=== PATIENT | female | born 1995 | race Caucasian/White ===

== ENCOUNTER 2017-05-23 15:37 | Outpatient (CLI) | payer OTHER ==
[~2017-05-23] VITALS: Ht 177.8 cm; Wt 108.2 kg
[2017-05-23 16:23] VITALS: BP 142/72
== END 2017-05-23 16:45 | disposition home or self-care (01) ==
LOC: LDOP 15:37
PROVIDERS: ATTEND Obstetrics & Gynecology
DX: O26.893 Other specified pregnancy related conditions, third trimester (principal); O48.0 Post-term pregnancy; R10.9 Unspecified abdominal pain; Z3A.41 41 weeks gestation of pregnancy
CPT/HCPCS: 59025; 99211; G0463

== ENCOUNTER 2018-09-10 00:58 | Inpatient (IN) | payer BC, OTHER ==
[~2018-09-10] VITALS: Ht 180.3 cm; Wt 119.0 kg
[2018-09-10] MEDS ORDERED: RANI-276 PO (01:12)
[2018-09-10] MEDS ORDERED: HALOPERIDOL 5 MG/ML ONE (01:26)
[2018-09-10 01:29] LABS: MEAN CORPUSCULAR HEMOGLOBIN 29.8 pg (27.0-34.8); MEAN CORPUSCULAR HGB CONC 33.7 g/dL (32.4-35.8); MEAN CORPUSCULAR VOLUME 88.6 fL (80-100); MEAN PLATELET VOLUME 9.3 fL (7.4-10.4); PLATELET COUNT 282 x10^3/uL (130-400); RED BLOOD COUNT 4.98 x10^6/uL (3.82-5.3); RED CELL DISTRIBUTION WIDTH 14.3 % (9.6-15.2)
[2018-09-10] MEDS ORDERED: CAPSAICIN CRM 0.025%, 60GM TP ONE (01:30)
[2018-09-10] MEDS ORDERED: SODIUM CHLORIDE 0.9% 1,000ML IVBOLUS ONE (01:30)
[2018-09-10] MEDS ORDERED: HALOPERIDOL 5 MG/ML IV ONE (01:30)
[2018-09-10 01:42] LABS: ALANINE AMINOTRANSFERASE 350 U/L (12-78); ALBUMIN 3.9 g/dL (3.4-5.0); ANION GAP 11 mmol/L (5-15); CALCIUM 8.8 mg/dL (8.5-10.1); CHLORIDE 112 mmol/L (98-107)
[2018-09-10 01:46] LABS: BASOPHILS # (AUTO) 0.04 x10^3/uL (0-0.1); BASOPHILS % (AUTO) 0 % (0-1); EOSINOPHILS # (AUTO) 0.58 x10^3/uL (0-0.4); EOSINOPHILS % (AUTO) 3 % (1-7); LYMPHOCYTES # (AUTO) 3.19 x10^3/uL (1-3.4); LYMPHOCYTES % (AUTO) 16 % (22-44); MONOCYTES # (AUTO) 1.15 x10^3/uL (0.2-0.8); MONOCYTES % (AUTO) 6 % (2-9); NEUTROPHILS # (AUTO) 15.53 x10^3/uL (1.8-6.8); NEUTROPHILS % (AUTO) 76 % (42-75)
[2018-09-10 01:47] LABS: ALKALINE PHOSPHATASE 193 U/L (45-117); BILIRUBIN,TOTAL 2.9 mg/dL (0.2-1.0); MD SCAN; TOTAL PROTEIN 7.6 g/dL (6.4-8.2)
[2018-09-10] MEDS ORDERED: MORPHINE SULFATE 4 MG/ML, 1ML ONE ×2 (02:40→03:54)
[2018-09-10] MEDS ORDERED: MORPHINE SULFATE 4 MG/ML, 1ML IV ONE (03:00)
[2018-09-10] MEDS ORDERED: LACTATED RINGERS 1,000 ML IVBOLUS ONE (04:30)
[2018-09-10] MEDS ORDERED: AMPICILLIN/SULBACTAM 3 GM IM ONE (04:30)
[2018-09-10] MEDS ORDERED: HYDROmorphone 1 MG/ML, 1ML IV ONE (04:30)
[2018-09-10 05:27] VITALS: BP 139/88
[2018-09-10] MEDS ORDERED: AMPICILLIN/SULBACTAM 3 GM in SODIUM CHLORIDE 0.9% 100 ML IV ONE (05:30)
[2018-09-10] MEDS ORDERED: hydrALAzine 20 MG/ML, 1ML IVPush PRN (05:30)
[2018-09-10] MEDS: LACTATED RINGERS 1,000 ML IV SCH ×6 (05:30→21:13)
[2018-09-10] MEDS ORDERED: PROMETHAZINE 25 MG/ML, 1ML IM PRN (05:30)
[2018-09-10 05:40] VITALS: BP 134/88
[2018-09-10] MEDS: HYDROmorphone 2 MG/ML, 1ML IVPush PRN ×5 (06:18→23:46)
[2018-09-10] MEDS: HEPARIN 5,000 UNITS/ML, 1ML SQ SCH ×3 (06:18→22:11)
[2018-09-10] MEDS ORDERED: MORPHINE SULFATE 4 MG/ML, 1ML IVPush ONE (07:00)
[2018-09-10 07:59] VITALS: BP 144/91
[2018-09-10] MEDS: PANTOPRAZOLE 40 MG IV IVPush SCH (08:27)
[2018-09-10] MEDS: KETOROLAC 30 MG/1 ML IV PRN ×2 (12:09→18:21)
[2018-09-10 13:05] VITALS: BP 144/88
[2018-09-10 19:19] VITALS: BP 144/92
[2018-09-10] MEDS: ONDANSETRON 2MG/ML, 2ML IVPush PRN (20:24)
[2018-09-11 00:44] VITALS: BP 132/82
[2018-09-11] MEDS: KETOROLAC 30 MG/1 ML IV PRN ×4 (00:47→22:23)
[2018-09-11] MEDS: LACTATED RINGERS 1,000 ML IV SCH ×7 (00:48→22:24)
[2018-09-11] MEDS: HYDROmorphone 2 MG/ML, 1ML IVPush PRN ×7 (03:21→23:41)
[2018-09-11 05:56] LABS: MEAN CORPUSCULAR HEMOGLOBIN 29.2 pg (27.0-34.8); MEAN CORPUSCULAR HGB CONC 32.3 g/dL (32.4-35.8); MEAN CORPUSCULAR VOLUME 90.5 fL (80-100); MEAN PLATELET VOLUME 9.1 fL (7.4-10.4); PLATELET COUNT 240 x10^3/uL (130-400); RED BLOOD COUNT 5.03 x10^6/uL (3.82-5.3); RED CELL DISTRIBUTION WIDTH 14.6 % (9.6-15.2)
[2018-09-11 06:10] LABS: CHLORIDE 108 mmol/L (98-107)
[2018-09-11 06:13] LABS: BASOPHILS # (AUTO) 0.03 x10^3/uL (0-0.1); BASOPHILS % (AUTO) 0 % (0-1); EOSINOPHILS # (AUTO) 0.01 x10^3/uL (0-0.4); EOSINOPHILS % (AUTO) 0 % (1-7); LYMPHOCYTES # (AUTO) 1.84 x10^3/uL (1-3.4); LYMPHOCYTES % (AUTO) 9 % (22-44); MD SCAN; MONOCYTES # (AUTO) 1.23 x10^3/uL (0.2-0.8); MONOCYTES % (AUTO) 6 % (2-9); NEUTROPHILS # (AUTO) 17.89 x10^3/uL (1.8-6.8); NEUTROPHILS % (AUTO) 85 % (42-75)
[2018-09-11 06:17] LABS: ALANINE AMINOTRANSFERASE 166 U/L (12-78); ALBUMIN 2.7 g/dL (3.4-5.0); ALKALINE PHOSPHATASE 156 U/L (45-117); ANION GAP 8 mmol/L (5-15); BILIRUBIN,TOTAL 0.9 mg/dL (0.2-1.0); CALCIUM 7.5 mg/dL (8.5-10.1); CREATININE 0.52 mg/dL (0.55-1.02); TOTAL PROTEIN 5.9 g/dL (6.4-8.2)
[2018-09-11] MEDS: HEPARIN 5,000 UNITS/ML, 1ML SQ SCH ×3 (06:30→22:23)
[2018-09-11 07:19] VITALS: BP 139/72
[2018-09-11] MEDS: PANTOPRAZOLE 40 MG IV IVPush SCH (07:43)
[2018-09-11 13:25] VITALS: BP 143/79
[2018-09-11] MEDS: ERTAPENEM 1 GM in SODIUM CHLORIDE 0.9% 50 ML IV SCH (16:12)
[2018-09-11 19:40] VITALS: BP 141/76
[2018-09-11] MEDS: ONDANSETRON 2MG/ML, 2ML IVPush PRN (20:17)
[2018-09-12 00:40] VITALS: BP 138/72
[2018-09-12] MEDS: HYDROmorphone 2 MG/ML, 1ML IVPush PRN ×6 (02:08→23:30)
[2018-09-12] MEDS: KETOROLAC 30 MG/1 ML IV PRN ×2 (04:18→18:21)
[2018-09-12 05:09] VITALS: BP 95/58
[2018-09-12] MEDS: LACTATED RINGERS 1,000 ML IV SCH ×2 (05:14→20:05)
[2018-09-12 05:22] LABS: CHLORIDE 105 mmol/L (98-107)
[2018-09-12 05:29] LABS: MEAN CORPUSCULAR HEMOGLOBIN 29.9 pg (27.0-34.8); MEAN CORPUSCULAR HGB CONC 33.7 g/dL (32.4-35.8); MEAN CORPUSCULAR VOLUME 88.8 fL (80-100); MEAN PLATELET VOLUME 9.9 fL (7.4-10.4); PLATELET COUNT 230 x10^3/uL (130-400); RED CELL DISTRIBUTION WIDTH 14.7 % (9.6-15.2)
[2018-09-12 05:35] LABS: ALANINE AMINOTRANSFERASE 107 U/L (12-78); ALBUMIN 2.4 g/dL (3.4-5.0); ALKALINE PHOSPHATASE 134 U/L (45-117); ANION GAP 6 mmol/L (5-15); BILIRUBIN,TOTAL 1.3 mg/dL (0.2-1.0); CALCIUM 7.7 mg/dL (8.5-10.1); CREATININE 0.58 mg/dL (0.55-1.02); TOTAL PROTEIN 5.5 g/dL (6.4-8.2)
[2018-09-12] MEDS: HEPARIN 5,000 UNITS/ML, 1ML SQ SCH ×3 (06:00→22:02)
[2018-09-12 06:08] LABS: MD YES
[2018-09-12 06:09] LABS: BAND#(MANUAL) 0.85 x10^3/uL; BANDS%(MANUAL) 5 % (0-7); LYMPH#(MANUAL) 2.37 x10^3/uL (1-3.4); LYMPHS% (MANUAL) 14 % (22-44); MONOS#(MANUAL) 0.68 x10^3/uL (0.3-2.7); MONOS% (MANUAL) 4 % (2-9); SEG#(MANUAL) 13.01 x10^3/uL (1.8-6.8); SEGS% (MANUAL) 77 % (42-75)
[2018-09-12 06:10] LABS: <RBC MORPHOLOGY> NORMAL
[2018-09-12 06:11] LABS: <PLATELET ESTIMATE> ADEQUATE; <PLT MORPHOLOGY> NORMAL PLT MORPH
[2018-09-12 07:03] VITALS: BP 138/72
[2018-09-12] MEDS: PANTOPRAZOLE 40 MG IV IVPush SCH (07:55)
[2018-09-12] MEDS ORDERED: POTASSIUM PHOSPHATE 44 MEQ in SODIUM CHLORIDE 0.9% 500 ML IV ONE (09:30)
[2018-09-12] MEDS ORDERED: FENTANYL PF 100 MCG/2ML ONE (10:12)
[2018-09-12] MEDS ORDERED: MIDAZOLAM 1 MG/ML, 2ML ONE (10:12)
[2018-09-12] MEDS ORDERED: OMNIPAQUE 350 MG/ML, 50 ML BOTTLE ONE (11:02)
[2018-09-12 13:27] VITALS: BP 126/71
[2018-09-12] MEDS: ERTAPENEM 1 GM in SODIUM CHLORIDE 0.9% 50 ML IV SCH (15:43)
[2018-09-12 19:06] VITALS: BP 140/63
[2018-09-13 00:39] VITALS: BP 117/70
[2018-09-13] MEDS: KETOROLAC 30 MG/1 ML IV PRN ×2 (00:50→09:11)
[2018-09-13] MEDS: HYDROmorphone 2 MG/ML, 1ML IVPush PRN ×3 (02:46→11:43)
[2018-09-13] MEDS: LACTATED RINGERS 1,000 ML IV SCH ×3 (02:46→22:04)
[2018-09-13] MEDS: HEPARIN 5,000 UNITS/ML, 1ML SQ SCH ×3 (06:00→21:50)
[2018-09-13 06:01] LABS: MEAN CORPUSCULAR HEMOGLOBIN 30.3 pg (27.0-34.8); MEAN CORPUSCULAR HGB CONC 33.8 g/dL (32.4-35.8); MEAN CORPUSCULAR VOLUME 89.6 fL (80-100); MEAN PLATELET VOLUME 9.8 fL (7.4-10.4); PLATELET COUNT 189 x10^3/uL (130-400); RED BLOOD COUNT 3.25 x10^6/uL (3.82-5.3); RED CELL DISTRIBUTION WIDTH 14.8 % (9.6-15.2)
[2018-09-13 06:08] LABS: CHLORIDE 104 mmol/L (98-107)
[2018-09-13 06:14] LABS: ALANINE AMINOTRANSFERASE 71 U/L (12-78); ALBUMIN 2.1 g/dL (3.4-5.0); ALKALINE PHOSPHATASE 110 U/L (45-117); ANION GAP 8 mmol/L (5-15); BILIRUBIN,TOTAL 0.8 mg/dL (0.2-1.0); CALCIUM 7.6 mg/dL (8.5-10.1); CREATININE 0.45 mg/dL (0.55-1.02); TOTAL PROTEIN 5.3 g/dL (6.4-8.2)
[2018-09-13 06:34] LABS: BASOPHILS # (AUTO) 0.05 x10^3/uL (0-0.1); BASOPHILS % (AUTO) 0 % (0-1); EOSINOPHILS # (AUTO) 0.06 x10^3/uL (0-0.4); EOSINOPHILS % (AUTO) 1 % (1-7); LYMPHOCYTES # (AUTO) 2.04 x10^3/uL (1-3.4); LYMPHOCYTES % (AUTO) 16 % (22-44); MD SCAN; MONOCYTES # (AUTO) 1.11 x10^3/uL (0.2-0.8); MONOCYTES % (AUTO) 9 % (2-9); NEUTROPHILS # (AUTO) 9.89 x10^3/uL (1.8-6.8); NEUTROPHILS % (AUTO) 75 % (42-75)
[2018-09-13 07:16] VITALS: BP 109/67
[2018-09-13] MEDS: PANTOPRAZOLE 40 MG IV IVPush SCH (07:56)
[2018-09-13] MEDS ORDERED: BUPIVACAINE/PF-EPI 0.5% 1:200K ONE (11:49)
[2018-09-13 11:57] LABS: HCG UR SG 1.028 (1.003-1.030)
[2018-09-13 12:24] VITALS: BP 123/74
[2018-09-13] MEDS ORDERED: FENTANYL PF 250 MCG/5ML ONE (13:43)
[2018-09-13] MEDS ORDERED: DEXAMETHASONE 4 MG/ML, 5ML ONE (14:41)
[2018-09-13] MEDS ORDERED: NEOSTIGMINE 1 MG/ML, 10ML ONE (14:41)
[2018-09-13] MEDS ORDERED: PROPOFOL 10 MG/ML, 20ML ONE (14:41)
[2018-09-13] MEDS ORDERED: GLYCOPYRROLATE 0.2MG/1ML, 5ML ONE (14:41)
[2018-09-13] MEDS ORDERED: ONDANSETRON 2MG/ML, 2ML ONE (14:41)
[2018-09-13] MEDS ORDERED: ROCURONIUM 10MG/ML,5ML ONE (14:41)
[2018-09-13] MEDS ORDERED: SUCCINYLCHOLINE 20 MG/ML, 10ML ONE (14:41)
[2018-09-13] MEDS ORDERED: ALBUTEROL SULFATE 200 PUFFS/8.5 GR INH ONE (14:41)
[2018-09-13] MEDS ORDERED: BUPIVACAINE/PF-EPI 0.5% 1:200K INFIL ONE (14:55)
[2018-09-13] MEDS: ERTAPENEM 1 GM in SODIUM CHLORIDE 0.9% 50 ML IV SCH ×2 (15:28→17:13)
[2018-09-13] MEDS ORDERED: OXYcodone 5 MG/5 ML ORAL.SOL UDC ONE (15:37)
[2018-09-13] MEDS ORDERED: FENTANYL PF 100 MCG/2ML ONE (15:37)
[2018-09-13] MEDS: FENTANYL PF 100 MCG/2ML IV PRN ×2 (15:38→15:45)
[2018-09-13] MEDS ORDERED: ONDANSETRON 2MG/ML, 2ML IV PRN (16:00)
[2018-09-13] MEDS ORDERED: ALBUTEROL SULFATE 2.5 MG/3 ML NPPB PRN (16:00)
[2018-09-13] MEDS ORDERED: MORPHINE SULFATE 4 MG/ML, 1ML IVPush PRN (16:00)
[2018-09-13] MEDS ORDERED: OXYcodone 5 MG/5 ML ORAL.SOL UDC PO PRN (16:00)
[2018-09-13] MEDS ORDERED: MEPERIDINE/PF 25MG/0.5ML IVPush PRN (16:00)
[2018-09-13] MEDS ORDERED: HYDROmorphone 1 MG/ML, 1ML IV PRN (16:00)
[2018-09-13] MEDS ORDERED: LABETALOL 5MG/ML, 20ML IV PRN (16:00)
[2018-09-13] MEDS ORDERED: ALBUTEROL/IPRATROPIUM 2.5MG/0.5MG, 3 ML NPPB PRN (16:00)
[2018-09-13] MEDS ORDERED: PROMETHAZINE 25 MG/ML, 1ML IV PRN (16:00)
[2018-09-13] MEDS ORDERED: HYDROmorphone 2 MG/ML, 1ML ONE (16:03)
[2018-09-13] MEDS ORDERED: POTASSIUM CHLORIDE 20 MEQ PACKET PO SCH (17:00)
[2018-09-13 19:30] VITALS: BP 131/78
[2018-09-13] MEDS: HYDROcodone/APAP 5/325 TABLET PO PRN (21:50)
[2018-09-13 23:42] VITALS: BP 124/70
[2018-09-14 02:42] VITALS: BP 115/68
[2018-09-14] MEDS: HYDROcodone/APAP 5/325 TABLET PO PRN ×2 (04:01→10:52)
[2018-09-14] MEDS: LACTATED RINGERS 1,000 ML IV SCH ×2 (04:03→09:22)
[2018-09-14 05:43] LABS: BASOPHILS # (AUTO) 0.02 x10^3/uL (0-0.1); BASOPHILS % (AUTO) 0 % (0-1); EOSINOPHILS % (AUTO) 0 % (1-7); LYMPHOCYTES # (AUTO) 1.16 x10^3/uL (1-3.4); LYMPHOCYTES % (AUTO) 10 % (22-44); MD NO; MEAN CORPUSCULAR HEMOGLOBIN 30.5 pg (27.0-34.8); MEAN CORPUSCULAR HGB CONC 34.6 g/dL (32.4-35.8); MEAN CORPUSCULAR VOLUME 88.1 fL (80-100); MEAN PLATELET VOLUME 9.3 fL (7.4-10.4); MONOCYTES # (AUTO) 0.83 x10^3/uL (0.2-0.8); MONOCYTES % (AUTO) 7 % (2-9); NEUTROPHILS % (AUTO) 82 % (42-75); PLATELET COUNT 207 x10^3/uL (130-400); RED BLOOD COUNT 3.01 x10^6/uL (3.82-5.3); RED CELL DISTRIBUTION WIDTH 14.6 % (9.6-15.2)
[2018-09-14 05:45] LABS: CHLORIDE 106 mmol/L (98-107)
[2018-09-14 05:53] LABS: ALANINE AMINOTRANSFERASE 60 U/L (12-78); ALKALINE PHOSPHATASE 93 U/L (45-117); ANION GAP 8 mmol/L (5-15); BILIRUBIN,TOTAL 0.5 mg/dL (0.2-1.0); CREATININE 0.35 mg/dL (0.55-1.02); TOTAL PROTEIN 5.5 g/dL (6.4-8.2)
[2018-09-14 07:03] VITALS: BP 116/70
[2018-09-14] MEDS: HEPARIN 5,000 UNITS/ML, 1ML SQ SCH (07:10)
[2018-09-14] MEDS: PANTOPRAZOLE 40 MG IV IVPush SCH (07:10)
[2018-09-14] MEDS ORDERED: ONDA4TAB7 PO (09:38)
[2018-09-14] MEDS ORDERED: DOCU100C33 PO (09:38)
[2018-09-14] MEDS ORDERED: HYDR-3240 PO (09:38)
== END 2018-09-14 12:05 | disposition home or self-care (01) | DRG 417 ==
LOC: ED 02:02 → EDIP 04:24 → 4NOR 05:23 → DCLOUNGE 09-14 09:38
PROVIDERS: ADMIT Hospitalist; ATTEND Hospitalist
PROC: BF101ZZ Fluoroscopy of Bile Ducts using Low Osmolar Contrast (ICD-10-PCS; 2018-09-12)
PROC: 0FC98ZZ Extirpation of Matter from Common Bile Duct, Via Natural or Artificial Opening Endoscopic (ICD-10-PCS; principal; 2018-09-12 10:30)
PROC: 0FT44ZZ Resection of Gallbladder, Percutaneous Endoscopic Approach (ICD-10-PCS; 2018-09-14)
DX: K85.10 Biliary acute pancreatitis without necrosis or infection (principal); E43 Unspecified severe protein-calorie malnutrition; K80.41 Calculus of bile duct with cholecystitis, unspecified, with obstruction; J90 Pleural effusion, not elsewhere classified; J98.11 Atelectasis; R65.10 Systemic inflammatory response syndrome (SIRS) of non-infectious origin without acute organ dysfunction; E83.39 Other disorders of phosphorus metabolism; E87.6 Hypokalemia; F12.90 Cannabis use, unspecified, uncomplicated; F17.210 Nicotine dependence, cigarettes, uncomplicated; E66.9 Obesity, unspecified; Z68.36 Body mass index [BMI] 36.0-36.9, adult
CPT/HCPCS: 36415; 74328; 99285; J3490; 74181; 76700; 80053; 81025; 83605; 83690; 83735; 84100; 84478; 84703; 85025; 87040; 88304; 96361; 96374; 96375; G0378; J0295; J1100; J1170; J1335; J1644; J1885; J2250; J2405; J2704; J2710; J3010; Q9967; C1769; C9113; J0330; J1630; J7030; J7040; J7120